=== PATIENT | female | born 1985 | race Two or more races ===

== ENCOUNTER 2018-04-28 17:30 | Emergency (ER) | payer OTHER ==
[2018-04-28] MEDS ORDERED: Ibuprofen TAB* 800 MG PO ONE (23:03)
--- NOTE | 2018-04-28 23:03 | ED ---
Upper Extremity Pain - HPI Summary HPI Summary: 32-year-old female presents with left hand injury today. She states the the cuffs were too tight on her left hand. She states it radiates into her wrist. She admits to some numbness and tingling. She is right-handed. Has no medical conditions. No other injury. She has edema and ecchymosis noted to the hand. - History of Current Complaint Chief Complaint: EDGeneral Stated Complaint: LEFT HAND INJURY PER LAW Time Seen by Provider: 04/28/18 22:54 - Allergies/Home Medications Allergies/Adverse Reactions: Allergies Allergy/AdvReac Type Severity Reaction Status Date / Time adhesive Allergy Hives Verified 04/28/18 17:50 Home Medications: Home Medications Atenolol TAB* [Tenormin TAB* 50 MG] 100 mg PO DAILY 04/28/18 [History Confirmed 04/28/18] FLUoxetine CAP* [PROzac CAP*] 60 mg PO DAILY 04/28/18 [History Confirmed ] Mirtazapine TAB* [Remeron TAB*] 45 mg PO BEDTIME 04/28/18 [History Confirmed ] hydrOXYzine HCL TAB* [Atarax TAB 50 MG *] 100 mg PO BEDTIME 04/28/18 [History Confirmed 04/28/18] PMH/Surg Hx/FS Hx/Imm Hx Endocrine/Hematology History: Denies: Hx Anticoagulant Therapy Respiratory History: Denies: Hx Asthma Infectious Disease History: No Infectious Disease History: Denies: Traveled Outside the [place] in Last 30 Days - Family History Known Family History: Positive: Non-Contributory - Social History Substance Use Type: Reports: None Smoking Status (MU): Never Smoked Tobacco Review of Systems Negative: Fever Negative: Chest Pain Negative: Shortness Of Breath Positive: Myalgia - left hand pain All Other Systems Reviewed And Are Negative: Yes Physical Exam Triage Information Reviewed: Yes Vital Signs On Initial Exam: Initial Vitals Temp Pulse Resp BP Pulse Ox 98.3 F 106 16 147/92 99 04/28/18 17:45 04/28/18 17:45 04/28/18 17:45 04/28/18 17:45 04/28/18 17:45 Vital Signs Reviewed: Yes Appearance: Positive: Well-Appearing Skin: Positive: Warm, Dry Head/Face: Positive: Normal Head/Face Inspection Eyes: Positive: Normal, Conjunctiva Clear ENT: Positive: Pharynx normal Respiratory/Lung Sounds: Positive: Clear to Auscultation, Breath Sounds Present Cardiovascular: Positive: Normal, RRR Musculoskeletal: Positive: Limited @ - left fingers, Other - tenderness snuff box mild, edema across posterior ascpect of left hand with ecchymosis, capillary refill<2 secs, sensation decreased grossly Neurological: Positive: Normal Psychiatric: Positive: Normal Diagnostics - Vital Signs Vital Signs Temp Pulse Resp BP Pulse Ox 04/28/18 19:50 98.3 F 95 16 123/83 98 04/28/18 17:45 98.3 F 106 16 147/92 99 - Laboratory Lab Statement: Any lab studies that have been ordered have been reviewed, and results considered in the medical decision making process. - Radiology hand, wrist Radiology Interpretation Completed By: ED Physician Summary of Radiographic Findings: no fracture Course/Dx - Course Course Of Treatment: 32-year-old female presents with left hand injury today. She states the the cuffs were too tight on her left hand. She states it radiates into her wrist. She admits to some numbness and tingling. She is right-handed. Has no medical conditions. No other injury. She has edema and ecchymosis noted to the hand. On exam has abrasion with edema and ecchymosis noted to posterior aspect hand. Mild snuffbox tenderness. capillary refill normal. decreased sensation grossly. Place in prefabricated thumb spica splint. X-ray read by me as normal. Told to practice rice. Told to follow with orthopedic. Patient understands and agrees with the plan. - Diagnoses Differential Diagnosis/HQI/PQRI: Positive: Fracture (Closed), Strain, Sprain Provider Diagnoses: Injury of left hand Discharge - Sign-Out/Discharge Documenting (check all that apply): Patient Departure Patient Received Moderate/Deep Sedation with Procedure: No - Discharge Plan Condition: Good Disposition: HOME Patient Education Materials: R.I.C.E. Treatment (ED) Referrals: Devika Delvalle [Primary Care Provider] - Neo Valencia MD [Medical Doctor] - Additional Instructions: keep splint on area Take Tylenol or ibuprofen every 6 hours as needed for pain Apply ice, rest, elevate Follow up with ortho if no improvement preliminary xray read as normal. xray will be reread tomorrow morning if anything was missed will be contacted Return to ED if develop any new or worsening symptoms - Billing Disposition and Condition Condition: GOOD Disposition: Home
[2018-04-28 23:23] VITALS: BP 0/0
== END 2018-04-28 23:21 | disposition home or self-care (01) ==
LOC: EDBD → ED 17:30
DX: S69.92XA Unspecified injury of left wrist, hand and finger(s), initial encounter (principal); M79.642 Pain in left hand; X58.XXXA Exposure to other specified factors, initial encounter; Y92.9 Unspecified place or not applicable
CPT/HCPCS: 99282; A9270-GY